=== PATIENT | female | born 1975 | race African-American/Black ===

== ENCOUNTER 2019-08-13 19:02 | Outpatient (CLI) | payer OTHER ==
[2019-08-13 20:04] LABS: PLATELET COUNT 479 K/uL (152-353)
[2019-08-13 20:51] LABS: POTASSIUM 4.3 mmol/L (3.6-5.2)
== END 2019-08-13 22:07 | disposition home or self-care (01) ==
LOC: LABW 19:02
PROVIDERS: Nurse Practitioner Family
DX: I10 Essential (primary) hypertension (principal); R53.83 Other fatigue; Z13.220 Encounter for screening for lipoid disorders; Z79.899 Other long term (current) drug therapy; R73.01 Impaired fasting glucose
CPT/HCPCS: 36415; 80053; 80061; 83036; 84443; 85027

== ENCOUNTER 2021-07-23 07:32 | Outpatient (CLI) | payer OTHER | END 2021-07-23 19:15 | disposition home or self-care (01) | LOC: MAMMO 07:32 | PROVIDERS: ATTEND Nurse Practitioner Family | DX: Z12.31 Encounter for screening mammogram for malignant neoplasm of breast (principal) ==

== ENCOUNTER 2022-08-03 19:49 | Outpatient (CLI) | payer OTHER ==
[2022-08-03 20:44] LABS: PLATELET COUNT 400 K/uL (152-353)
[2022-08-03 21:43] LABS: POTASSIUM 4.1 mmol/L (3.6-5.2)
== END 2022-08-03 20:42 | disposition home or self-care (01) ==
LOC: LABW 19:49
PROVIDERS: ATTEND Nurse Practitioner Family
DX: Z00.00 Encounter for general adult medical examination without abnormal findings (principal); Z79.899 Other long term (current) drug therapy; R73.01 Impaired fasting glucose; R53.83 Other fatigue
CPT/HCPCS: 80053; 80061; 84443; 85027